=== PATIENT | male | born 1960 | race African-American/Black ===

== ENCOUNTER 2016-10-14 21:15 | Inpatient (IN) | payer OTHER ==
--- NOTE | ~2016-10-14 | IDS ---
Interim Discharge Summary [facility] [address] [place]. [address] NAME: JADE ALLEN : 56 STATUS : ADM IN PAT#: [id number] AGE: 56 ADM/REG DATE : 10/15/16 MR#: [id number] REPORT SERV DATE: 10/24/16 DICTATED BY: CHRISTAL GUTIERREZ DATE: 10/24/16 REPORT STATUS : Draft TRANSCRIBED BY: MODL DATE: 10/24/16 ADMISSION DATE: 10/15/2016 DISCHARGE DATE: The patient was admitted on 10/15/2016 by my colleague, Dr. Alamo. Afterwards, the patient was seen by Dr. Cruz, hospitalist and then I started to see this patient on 10/18/2016. I personally provided service to this patient from 10/18/2016 to 10/24/2016. CURRENT MEDICAL PROBLEMS: 1. Status post aortic root replacement and also pericardial tissue aortic valve replacement for dissecting ascending aortic aneurysm on 10/20/2016 per cardiothoracic surgeon, Dr. Hamilton. 2. Right-sided large pneumothorax on the chest x-ray on 10/24/2016/postsurgical for pigtail catheter placement today recommended per Cardiothoracic Surgery, Dr. Hamilton. 3. Hypertension, currently off nicardipine drip. Blood pressure mostly controlled. Norvasc added to the patient's blood pressure medication regimen per lease operator, Dr. Peña. 4. Chronic congestive heart failure, chronic systolic dysfunction with ejection fraction of 40 to 45%. 5. Acute kidney injury resolved chronic kidney disease with creatinine being at the baseline. Malariologist, Dr. Sanchez signed off. 6. Mild coronary artery disease, asymptomatic. 7. Postsurgical hyperglycemia, controlled. No evidence of diabetes mellitus. 8. Anemia postsurgical stable hemoglobin and hematocrit. 9. Postsurgical stress leukocytosis, improved, afebrile. 10.Mild thrombocytopenia, postsurgical, improved. CONSULTANTS ON THE CASE: [employer], Dr. Peña and Cardiothoracic, Dr. Hamilton. Plan for this patient is pigtail catheter placement today and blood pressure control. My partner, Dr. Cruz will see this patient starting tomorrow morning. Cardiology, Dr. Peña following this week. MG/MODL Christal Gutierrez M.D. / [id number] CC: Rhina Plummer M.D. Interim Discharge Summary [address] [place] [address] NAME: JADE ALLEN : 56 STATUS : ADM IN PAT#: [id number] AGE: 56 ADM/REG DATE : 10/15/16 MR#: [id number] REPORT SERV DATE: 10/24/16 DICTATED BY: CHRISTAL GUTIERREZ DATE: 10/24/16 REPORT STATUS : Draft TRANSCRIBED BY: KATIE DATE: 10/24/16 Raymond Peña M.D., Ph.D, F.A.C.C. Rhina Ospina M.D.
--- NOTE | ~2016-10-14 | HP ---
History And Physical [place] [id number] [facility] [place]. [address] NAME: JADE ALLEN : 56 STATUS : ADM IN PAT#: [id number] AGE: 56 ADM/REG DATE : 10/15/16 MR#: [id number] REPORT SERV DATE: 10/15/16 DICTATED BY: SYLVESTER NAVARRO DATE: 10/15/16 REPORT STATUS : Draft TRANSCRIBED BY: MODCallie DATE: 10/15/16 DATE OF ADMISSION: 10/15/2016 CHIEF COMPLAINT: Abnormal CT. HISTORY OF PRESENT ILLNESS: The patient is a 56-year-old male with past medical history of hypertension, thoracic aneurysm 5.1 cm, CKD, tobacco use, systolic heart failure under care of Dr. Peña, who was undergoing routine CT for followup of his aneurysm and was noted to have mild enlargement from 5.1 to 5.3 to 5.5 and questionable early small dissection but of note, was also noted to have elevated blood pressure and was sent to emergency room. The case was discussed with emergency room and Dr. Hamilton on-call for CV surgery who recommended further blood pressure control now but due to additional stable vitals at presentation and no chest pain or discomfort, cardiac monitoring, no emergent surgery recommended at this time but we will be monitoring. The patient was placed on clonidine patch, nifedipine with improved blood pressures fairly quickly. The patient has not had any symptoms. Aneurysm has been constant and surveillance since at least 2014. No pain radiating symptoms. No nausea, vomiting, fever, chills, but blood pressure has been somewhat elevated although the patient has not really been symptomatic from this. There is nothing that has worsened or relieved blood pressure. The patient does still smoke approximately one Black and Mild every two to three days. REVIEW OF SYSTEMS: For additional review of systems, 10-point review of systems negative except for that noted in HPI. The patient has no other complaints. PAST MEDICAL HISTORY: Hypertension, reflux, AAA, and CHF. SURGICAL HISTORY: Denies. ALLERGIES: NO KNOWN DRUG ALLERGIES. 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 FAMILY HISTORY: High blood pressure and diabetes. EKG; normal sinus rhythm, rate 73, QTc 456. ALLERGIES: NO KNOWN DRUG ALLERGIES. HOME MEDICATIONS: Aspirin, Tums, Vasotec, Lopressor, multivitamin, and Clear Eyes. PHYSICAL EXAMINATION: VITAL SIGNS: The patient's blood pressure initially was 197/68, improved to 150s over 80s, temperature 98.2, pulse 74, respirations 18, and O2 sats 98%. GENERAL: No acute distress. Well developed, well nourished. Approximately 6 foot 3 inches. EYES: Does have injected conjunctivae. EOMI. History And Physical [address] [place]. [address] NAME: JADE ALLEN : 56 STATUS : ADM IN PAT#: [id number] AGE: 56 ADM/REG DATE : 10/15/16 MR#: [id number] REPORT SERV DATE: 10/15/16 DICTATED BY: SYLVESTER NAVARRO DATE: 10/15/16 REPORT STATUS : Draft TRANSCRIBED BY: KATIE DATE: 10/15/16 ENT: Nares patent. Tongue midline. RESPIRATORY: Clear to auscultation. No wheezes, rales. CV: Does have systolic ejection murmur. No rubs or gallops. GI: Soft, nontender, nondistended. Bowel sounds positive. : Deferred. MUSCULOSKELETAL: Moves all extremities x4. SKIN: Warm and dry. LYMPH: No cervical or supraclavicular lymphadenopathy. HEME: No bleeding or bruising. NEURO: Alert and oriented. Symmetrical smile. Normal vocal kirk. Symmetrical strength bilaterally. PSYCH: Calm, pleasant, resting comfortably. LABS: CTA 5.5 cm ascending thoracic aneurysm with short segment dissection, moderate dilated aortic root 3.8 cm, aneurysm of the proximal descending thoracic aorta, coronary disease, mild nonobstructive multivessel calcification, atherosclerosis as described above. WBC count 5.6, H and H 14 and 40.3 platelets 180, INR 1.1. Troponin negative. Magnesium 2.2. Calcium 9.4, glucose 112, creatinine 1.62, BUN 19, sodium 140, potassium 3.5, chloride 105, and bicarb 27. ASSESSMENT AND PLAN: 1. Accelerated hypertension. 2. Ascending aortic aneurysm. 3. Chronic kidney disease. 4. Tobacco use. 5. Systolic heart failure history. 6. Likely hyperlipidemia. PLAN: 1. For accelerated hypertension, improved with clonidine patch, increased CRISTOBAL inhibitor and on beta silviano. Add CCB. Titrate CRISTOBAL inhibitor as tolerated as the patient does have mild CKD. Heart rate borderline, monitor while on beta silviano. We would like to optimize current home medications for BP control, however, due to heart rate and CKD, we will need to monitor closely. 2. Ascending aortic aneurysm and thoracic aneurysm. CT note Dr. Hamilton has been notified and aware. Continue BP control. Risks modifications with stopping tobacco use. CV surgery to evaluate in a.m. 3. CKD, monitor BP control, check renin aldosterone ratio. 4. Tobacco use. Check UDS, nicotine patch. Does smoke one cigar every three days. I have discussed and counseled. 5. Systolic heart failure, grade 3 to 6 systolic ejection murmur prior, EF currently 40%- 45%, followed by Dr. Peña, on CRISTOBAL inhibitor, beta silviano, aspirin, start statin. Echo was done on 10/14/2016. 6. Likely hyperlipidemia. He does have what appears to be cholesterol deposits on eyelids. Check lipid profile. Start statin. All questions answered to patient and family. History And Physical [address] [address] NAME: JADE ALLEN : 56 STATUS : ADM IN PAT#: [id number] AGE: 56 ADM/REG DATE : 10/15/16 MR#: [id number] REPORT SERV DATE: 10/15/16 DICTATED BY: SYLVESTER NAVARRO DATE: 10/15/16 REPORT STATUS : Draft TRANSCRIBED BY: KATIE DATE: 10/15/16 DDN/KATIE Sylvester Navarro MD / [id number] CC: Rhina Lyon M.D.
--- NOTE | ~2016-10-14 | CN ---
Consultation Report [facility] [address] [place]. [address] NAME: JADE ALLEN : 56 STATUS : DIS IN PAT#: [id number] AGE: 56 ADM/REG DATE : 10/15/16 MR#: [id number] REPORT SERV DATE: 10/31/16 DICTATED BY: RAJIV PHOENIX DATE: 10/31/16 REPORT STATUS : Draft TRANSCRIBED BY: MODL DATE: 10/31/16 CONSULT NOTE DATE OF CONSULTATION: 10/17/2016 REASON FOR REFERRAL: Evaluation for ascending aortic focal dissection. HISTORY OF PRESENT ILLNESS: The patient is a 56-year-old male, who has been followed by Dr. Peña for an ascending aortic aneurysm. He recently had a followup CT scan performed as an outpatient, which shows an increase in the size of his aortic aneurysm with a suggestion of a focal dissection. He was sent to the emergency department and subsequently admitted on the hospital by the hospitalist service. He does not complain of any radiating pain, shortness of breath, or any other symptoms at this time. He does report noncompliance with his blood pressure medication. PAST MEDICAL HISTORY: Significant for chronic kidney disease, ascending aortic aneurysm, hypertension, systolic heart failure, and hyperlipidemia. PAST SURGICAL HISTORY: None. SOCIAL HISTORY: Socially, he is a current tobacco user. Drinks about a six-pack a week of alcohol. 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 FAMILY HISTORY: Significant for kidney disease. ALLERGIES: NO KNOWN DRUG ALLERGIES. HOME MEDICATIONS: Include Vasotec, Lopressor, aspirin, multivitamin. REVIEW OF SYSTEMS: Otherwise negative that which was not stated in the HPI. PHYSICAL EXAMINATION: VITAL SIGNS: He is afebrile and vital signs are all currently stable. HEENT: Normocephalic, atraumatic with no scleral icterus. NECK: Supple with no thyromegaly. CHEST: Clear to auscultation bilaterally. HEART: Regular rate and rhythm with a 3/6 diastolic murmur. ABDOMEN: Soft, nontender, nondistended. EXTREMITIES: Warm with 1+ distal pulses. No clubbing, cyanosis, or edema. MUSCULOSKELETAL: Grossly intact. NEUROLOGIC: Grossly intact. STUDIES: He has already undergone CT scan, which I have reviewed, which shows a 5 cm Consultation Report [facility] [address] [place]. [address] NAME: AJDE ALLEN : 56 STATUS : DIS IN PAT#: [id number] AGE: 56 ADM/REG DATE : 10/15/16 MR#: [id number] REPORT SERV DATE: 10/31/16 DICTATED BY: RAJIV PHOENIX DATE: 10/31/16 REPORT STATUS : Draft TRANSCRIBED BY: MODL DATE: 10/31/16 ascending aortic aneurysm with what appears to be a focal dissection at the lesser curvature abutting the main pulmonary artery trunk. This appears to be stable. He also has undergone an echocardiogram, which shows aortic insufficiency 2 to 3+. IMPRESSION: Ascending aortic aneurysm with focal dissection and aortic insufficiency. PLAN: He is to undergo cardiac catheterization to evaluate any coronary artery disease. There is no doubt he will need surgical intervention. I have explained all risks, benefits, and alternatives of surgery with him including, but not limited to bleeding, infection, stroke, and . He understands these risks and wishes to proceed. Once we have cardiac catheterization, I will discuss valve choice and we will intervene in the next few days. CCR/MODL Rajiv Phoenix M.D. / [id number] CC: MD Kathie Becerra M.D.
--- NOTE | ~2016-10-14 | CN ---
Consultation Report [facility] [address] [place]. [address] NAME: JADE ALLEN : 56 STATUS : ADM IN PAT#: [id number] AGE: 56 ADM/REG DATE : 10/15/16 MR#: [id number] REPORT SERV DATE: 10/15/16 DICTATED BY: AMOS OSCAR DATE: 10/15/16 REPORT STATUS : Draft TRANSCRIBED BY: MODL DATE: 10/15/16 DATE OF CONSULTATION: REASON FOR CONSULTATION: Chronic kidney disease. HISTORY OF PRESENT ILLNESS: This is a very pleasant 56-year-old male patient, who is referred to [facility] after observational followup imaging noted thoracic aneurysm enlargement from 5.1 to 5.3 to 5.5 with questionable early dissection. He was also noted to be hypertensive, and he was evaluated at [facility] in the emergency department and placed inpatient in favor of further workup and supportive care. Surgical Service it appears has evaluated the patient and continues to monitor him closely. Blood pressure augmentation is underway, and we have been asked to evaluate the patient for the possibility of chronic kidney disease. The patient reports a family medical history consistent with hypertension and a grandmother who with some complication related to end-stage renal disease; however, the patient does not recall specifically any end-stage renal disease or chronic kidney disease in his family medical history. He has had some level of difficulty with blood pressure control for prolonged amount of time by his own admission and continues to intermittently smoke Black and Milds every two to three days and prior to that, had smoked one pack per day for multiple years. He is awake and alert this afternoon. He denies current chest pain. No nausea, vomiting, or diarrhea and has no acute complaints. PAST MEDICAL HISTORY: Positive for hypertension, reflux, AAA, and CHF with unknown ejection fraction at the point of dictation. REVIEW OF SYSTEMS: Completed, please see HPI for pertinent details. PAST SURGICAL HISTORY: There is none listed on his previous chart. SOCIAL HISTORY: Occasional use of a Black and Mild. Previously smoked one pack per day for greater than 25 years with recent smoking cessation for approximately six months, then a reintroduction of intermittent smoking. He rarely uses alcohol. No illicit drugs. Does not use nonsteroidals with any frequency. 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 FAMILY HISTORY: Positive for hypertension and diabetes as well as some comorbid condition related to chronic kidney disease/end-stage renal disease with his grandmother at the time of . ALLERGIES: HE LISTS NO KNOWN MEDICATION ALLERGIES. HOME MEDICATIONS: ASA 81 mg daily, Tums 750 to 1500 daily p.r.n., Vasotec 5 mg p.o. daily, metoprolol 50 mg p.o. b.i.d., multivitamin one tab p.o. daily, and Clear Eyes one drop OPH daily p.r.n. Consultation Report [place] [id number] [place]. [address] NAME: JADE ALLEN : 56 STATUS : ADM IN PAT#: [id number] AGE: 56 ADM/REG DATE : 10/15/16 MR#: [id number] REPORT SERV DATE: 10/15/16 DICTATED BY: AMOS OSCAR DATE: 10/15/16 REPORT STATUS : Draft TRANSCRIBED BY: KATIE DATE: 10/15/16 PHYSICAL EXAMINATION: VITAL SIGNS: Blood pressure 212/86, temperature 97.8, respiratory rate 18, heart rate 67 beats per minute, and 94% on room air. 10 mL listed in and 550 out. GENERAL: He is awake and alert, in no acute distress. Denies current chest pain. No nausea, vomiting, or diarrhea. HEENT: Normocephalic and atraumatic. Normal ocular movements. No scleral icterus or conjunctival pallor is appreciated. NECK: Without thyromegaly. No JVD or mass. CHEST: Shows positive S1 and S2. No rubs or gallops. LUNGS: Diminished, but clear to auscultation throughout with normal expansion and effort bilaterally. GI: Shows positive bowel sounds. EXTREMITIES: No clubbing, cyanosis, or edema. NEUROLOGIC: Appears to be grossly intact and nonfocal. SKIN: Warm, dry, and intact to visualized surfaces. No rash, lesions, or ecchymosis. PSYCH: He is of appropriate mood and affect. : Deferred. LABORATORY DATA: Pertinent laboratories and imaging to this evaluation: Most recent creatinine at 1.34, sodium 143, potassium 3.5, chloride 107, CO2 of 27, BUN 16, reflected GFR at 67 mL/minute, glucose of 97, calcium 8.9, magnesium 2.0. Lipid panel shows cholesterol 178, HDL and LDL 55 and 111 respectively, triglycerides are 64. Albumin 3.4, globulin 3.48, ALT and AST are 29 and respectively, alkaline phosphatase 95. White blood cell count at 5.2, RBC 4.35, platelets 162. IMPRESSION AND PLAN: This is a very pleasant 56-year-old male patient with recent history as reflected above in HPI with admission for enlarging with surgical observation as planned at this point. The patient has long had difficulty with uncontrolled hypertension and has continued to intermittently smoke and has a previous smoking history. He does not chronically use nonsteroidal medications and does have a family history that does have some level of chronic kidney disease involvement, it would seem. With his labile blood pressure, would question the presence of renal artery stenosis. Likely, his chronic kidney disease is related to his uncontrolled hypertension. In review of his previous creatinine spanning the years of 2014, 2015 and 2016, his baseline appears to be 1.34, which is just today, at its lowest point to a max of 1.63 detected on 04/20/2015. He did receive contrast of 100 mL on evaluation in the emergency department with undertaking of his CTA. He continues currently on his CRISTOBAL inhibitor, and this medication may need to be removed at least temporarily if his creatinine were to higher. In regard to his chronic kidney disease, we will check a urinalysis for protein and blood, check renal ultrasound and Doppler to rule out renal artery stenosis, check postvoid residual to assure complete bladder emptying and no urinary retention. I suspect this gentleman is likely at his baseline and is advised to improve blood pressure control not only for his AAA maintenance, but as well as to maintain his renal health going forward. He is also advised towards smoking cessation, and he is also Consultation Report [place] [address] [facility] [place]. [address] NAME: JADE ALLEN : 56 STATUS : ADM IN PAT#: [id number] AGE: 56 ADM/REG DATE : 10/15/16 MR#: [id number] REPORT SERV DATE: 10/15/16 DICTATED BY: AMOS OSCAR DATE: 10/15/16 REPORT STATUS : Draft TRANSCRIBED BY: KATIE DATE: 10/15/16 advised for judicious exposure to contrast medium when medically necessary. We will follow the patient with you, place him on strict I's and Os, daily weights, augment blood pressure control, further testing as listed above and modify treatment plan based on clinical presentation of the patient, laboratory results, further consultation with Renal attending. We appreciate consultation, we are glad to follow. DICTATED BY: Wil Larsen NP JR/KATIE os Oscar M.D. / [id number] CC: Rhina Lyon M.D.
--- NOTE | ~2016-10-14 | CN ---
Consultation Report [address] [place]. [address] NAME: JADE BRICE : 56 STATUS : ADM IN PAT#: [id number] AGE: 56 ADM/REG DATE : 10/15/16 MR#: [id number] REPORT SERV DATE: 10/15/16 DICTATED BY: RAYMOND BAH DATE: 10/15/16 REPORT STATUS : Draft TRANSCRIBED BY: MODCallie DATE: 10/15/16 CARDIOLOGY CONSULTATION. DATE OF CONSULTATION: [facility] PHYISICIAN: Raymond Bah M.D., Ph.D, F.A.C.C. INDICATIONS: A 56-year-old man with abnormal CT scan and thoracic aortic aneurysm, probable focal dissection. HISTORY OF PRESENT ILLNESS: Mr. Brice is a 56-year-old man with a history of poorly controlled hypertension and variable medication compliance as well as thoracic aneurysm which has been followed clinically over the years. He saw his primary care physician recently who noted by patient report a progressive heart murmur and ordered an outpatient CT scan that was performed yesterday showing a 5.5 cm ascending aortic aneurysm and probable small focal dissection of the ascending aorta adjacent to the pulmonary artery. I have reviewed this personally and agree. The patient is completely asymptomatic. He has no chest pain or chest discomfort. He has no dyspnea. He does report he was not taking his blood pressures regularly like he was supposed to and missing several doses. He has no palpitations, lightheadedness, dizziness, and no fever. REVIEW OF SYSTEMS: As per the history of present illness. Ten other systems are negative. PAST MEDICAL HISTORY: 1. Hypertension. 2. Thoracic aortic aneurysm. 3. Hypertensive cardiomyopathy. FAMILY HISTORY: Positive for heart disease. SOCIAL HISTORY: Positive alcohol, positive tobacco. ALLERGIES: NO KNOWN DRUG ALLERGIES. HOME MEDICATIONS: 1. Aspirin 81 daily. 2. Tums. 3. Vasotec 10 p.o. daily. 4. Lopressor 50 p.o. b.i.d. 5. A multivitamin. PHYSICAL EXAMINATION: VITAL SIGNS: The patient is afebrile. Heart rate 74. Blood pressure 184/60. Consultation Report [address] [address] NAME: JADE BRICE : 56 STATUS : ADM IN PAT#: [id number] AGE: 56 ADM/REG DATE : 10/15/16 MR#: [id number] REPORT SERV DATE: 10/15/16 DICTATED BY: RAYMOND BAH DATE: 10/15/16 REPORT STATUS : Draft TRANSCRIBED BY: KATIE DATE: 10/15/16 GENERAL: The patient is a pleasant black male, no apparent distress. HEENT: Conjunctivae are anicteric, no xanthelasma, lips without cyanosis. NECK: Supple, normal JVP, carotids +2 without bruit. LUNGS: Clear to auscultation bilaterally, no wheezes, rales or rhonchi. CARDIOVASCULAR: Regular rate and rhythm. There is a 3/6 diastolic blowing murmur. There are symmetrical pulses. ABDOMEN: Soft, nontender, nondistended, with normal bowel sounds. No hepatomegaly. EXTREMITIES: No clubbing, cyanosis or edema. NEURO/PSYCH: Alert and oriented to person, place and time. No gross neurologic abnormality. Mood and affect normal. DATA: EKG shows sinus rhythm with no diagnostic ST-T wave changes. Labs significant for mildly elevated creatinine. IMPRESSION: 1. Ascending aortic aneurysm, probable small dissection, which has been personally reviewed. 2. Hypertension. 3. Acute on chronic kidney disease. 4. Tobacco abuse. 5. Aortic insufficiency. RECOMMENDATIONS: Mr. Brice has poorly controlled hypertension and a thoracic aneurysm at the limits recommended for surgery. I do believe he has a small focal dissection but is completely asymptomatic. I suspect it is more chronic based on the history. We are going to monitor him carefully here in the hospital, get him evaluated by CT surgery. I am going to try to get his creatinine better by controlling his blood pressure. We may consider doing an arteriogram before proceeding with a more urgent aneurysm repair. I am going to attempt to discuss this with Dr. Hamilton. WO/KATIE Raymond Bah M.D., Ph.D, F.A.C.C. / [id number] CC: Rhina Lyon M.D.
--- NOTE | ~2016-10-14 | OP ---
Record Of Operation [facility] [address] [place]. [address] NAME: JADE ALLEN : 56 STATUS : DIS IN PAT#: [id number] AGE: 56 ADM/REG DATE : 10/15/16 MR#: [id number] REPORT SERV DATE: 11/01/16 DICTATED BY: RAJIV PHOENIX DATE: 10/31/16 REPORT STATUS : Draft TRANSCRIBED BY: MODL DATE: 10/31/16 DATE OF PROCEDURE: 10/20/2016 PREOPERATIVE DIAGNOSIS: Ascending aortic aneurysm at greater than 5 cm, 3 to 4+ aortic insufficiency, focal ascending aortic dissection. POSTOPERATIVE DIAGNOSIS: Ascending aortic aneurysm at greater than 5 cm, 3 to 4+ aortic insufficiency, focal ascending aortic dissection. PROCEDURE: 1. Urgent ascending aortic replacement with a #32 Gelweave graft with sinus segment preservation. 2. Aortic valve replacement with a #27 Mckeon Magna Ease pericardial valve. 3. Transesophageal echocardiogram. 4. Right subclavian 8 mm Gelweave graft anastomosis for aortic inflow. SURGEON: Rajiv Phoenix M.D. TARE MAN: Yoavny. ANESTHESIA: Nakul Chang M.D. CARDIOPULMONARY BYPASS TIME: 91 minutes. CROSS-CLAMP TIME: 67. FINDINGS: 4+ aortic insufficiency with redundant leaflet folds at the coaptation site, 5.1 cm ascending aorta with focal dissection that is chronic abutting the pulmonary artery, 3.8 cm sinus segment that was preserved, ejection fraction approximating 50%, trace mitral regurgitation. WIRES: Atrial and ventricular x2. TUBES: Mediastinal x2. COMPLICATIONS: None. CONDITION: Fair to the ICU on a Dobutrex drip AV paced at 80. PROCEDURE IN DETAIL: After informed consent was obtained from the patient, he was brought to the operating room, laid in supine position and general anesthesia was induced. A transesophageal echocardiogram was performed, which showed the aforementioned ascending aortic aneurysm with 3 to 4+ aortic insufficiency that was central and eccentric nature. There was trace mitral regurgitation. The patient was prepped and draped in the normal fashion. Incision was made just inferior to the right clavicle and dissection carried down to the right subclavian artery. A 5000 units of heparin were given systemically. Vessel Record Of Operation [facility] [address] [place]. [address] NAME: JADE ALLEN : 56 STATUS : DIS IN PAT#: [id number] AGE: 56 ADM/REG DATE : 10/15/16 MR#: [id number] REPORT SERV DATE: 11/01/16 DICTATED BY: RAJIV PHOENIX DATE: 10/31/16 REPORT STATUS : Draft TRANSCRIBED BY: KATIE DATE: 10/31/16 loops were placed proximally and distally. The subclavian artery was entered sharply and an aortic punch used to create a defect. A end-to-side 8 mm anastomosis using a Gelweave graft was performed using a running 5-0 Prolene suture. Artery was allowed to back-bleed and the graft hooked up to arterial inflow from the pump after de-airing. A median sternotomy was performed in the usual fashion. Pericardium was entered in the midline and tacked to the skin using multiple silk sutures. Full systemic heparinization was performed. Venous cannulation was performed in the right atrial appendage. A retrograde cardioplegia cannula was placed in the coronary sinus via the right atrium. The patient was placed on cardiopulmonary bypass and cooled to approximately 35 degrees Celsius. An LV vent was placed via the right superior pulmonary vein. Cross-clamp was placed high just in the proximal arch, just inferior to the right subclavian artery. Custodiol cardioplegia was given via the retrograde cannula. An incision was made into the ascending aorta, dissection carried down so that the sinus segment could be visualized. Additional handheld cardioplegia was given down both coronary ostia. Approximately 1.5 to 2 L of total fpc was given. Dissection was then carried down all the way to the sinotubular junction and the ascending aorta removed. There was a focal dissection in the inferior curvature of the ascending aorta abutting the pulmonary artery with significant scar tissue around this area. This was all removed. The sinus segment appeared normal in size at 3.8 cm. The aortic valve was trileaflet in nature, but had severe redundant fold over leading edges of the leaflet that were not competent. The aortic valve leaflets were excised sharply. The aortic annulus was sized and a #27 Mckeon Magna Ease Pericardial valve selected, brought to the field and washed. Circumferential 2-0 Tycron pledgeted sutures were placed along the valve anulus. Sutures were then fired through the sewing ring of the valve and the valve seated without difficulty. Sutures were then tied down circumferentially. Attention was carried back to the ascending aorta. The ascending aorta was dissected sharply up to the cross-clamp where there again was found a normal non- aneurysmal tissue. The sinotubular junction was sized and a 32 mm Gelweave straight graft brought to the field. A proximal end-to-end anastomosis was performed using a running 4-0 Prolene suture. An end-to-end distal anastomosis was performed using a running 4-0 Prolene suture. A vent cannula was placed into the graft. The heart was filled and de-aired through the vent cannula. Cross-clamp was removed. Ventricular pacing wires were placed on the right ventricular surface and atrial pacing wires placed on the right atrial surface. A posterior pericardial chest tube was placed. After the patient achieved normothermia, he was weaned from cardiopulmonary bypass without difficulty. Transesophageal echocardiogram showed the valve to be functioning well with no perivalvular leaks. Protamine was administered. The patient was decannulated. After surgical hemostasis was achieved, an anterior pericardial chest tube was placed and the sternal wire reapproximated using the sternal cable system. An Endo-LUIGI stapler was then used to staple off the graft from the right subclavian artery. The dissection plane was then closed using running Vicryl and Monocryl sutures. Overall, the patient tolerated procedure well, was transported to the ICU on a Dobutrex drip AV paced at 80. CCR/MODL Rajiv Record Of Operation [facility] [address] [place]. [address] NAME: JADE ALLEN : 56 STATUS : DIS IN PAT#: [id number] AGE: 56 ADM/REG DATE : 10/15/16 MR#: [id number] REPORT SERV DATE: 11/01/16 DICTATED BY: RAJIV PHOENIX DATE: 10/31/16 REPORT STATUS : Draft TRANSCRIBED BY: MODL DATE: 10/31/16 Mayo Phoenix M.D. / [id number] CC: MD Kathie Becerra M.D. [facility] c/o Rajiv Phoenix
--- NOTE | ~2016-10-14 | DS ---
Discharge Summary [facility] [address] [place]. [address] NAME: JADE ALLEN : 56 STATUS : DIS IN PAT#: [id number] AGE: 56 ADM/REG DATE : 10/15/16 MR#: [id number] REPORT SERV DATE: 10/28/16 DICTATED BY: BASIL CASTILLO DATE: 10/27/16 REPORT STATUS : Draft TRANSCRIBED BY: MODL DATE: 10/27/16 ADMISSION DATE: 10/15/2016 DISCHARGE DATE: 10/27/2016 ADDENDUM: DISCHARGE DIAGNOSES: 1. Status post aortic root and aortic valve replacement per Dr. Hamilton on 10/20/2016. 2. Right-sided large pneumothorax on 09/24/2016, status post chest tube placement with improvement. 3. Hypertension. 4. Chronic congestive heart failure with baseline systolic dysfunction of ejection fraction 40%-45%. 5. Acute kidney injury, resolved. 6. Mild coronary artery disease. 7. Postsurgical hyperglycemia, controlled. 8. Mild thrombocytopenia, postsurgical, improved. 9. Postsurgical stress leukocytosis, improved. 10.Postop anemia. Please note that this is an addendum to an interim discharge summary that was dictated by Dr. Priyanka Martinez. The patient was actually basically ready for discharge home by the time I assumed care on 10/25/2016. The patient had the chest tube placed the night prior to my encounter with the patient and his pneumothorax had improved. The chest tube was discontinued by 10/26 and the patient was simply monitored overnight to make sure he was stable and the pneumothorax was not coming back. Otherwise, the patient had been stable from surgical standpoint for discharge home, and he did not have any other acute issues. The patient is being discharged home with close outpatient followup instructions. There was nothing more to add to Dr. Martinez's interim discharge summary. DISPOSITION: Home. MEDICATIONS: 1. Enalapril 5 mg p.o. q.a.m. 2. Aspirin 81 mg p.o. q.a.m. 3. Multivitamin one tab p.o. with lunch. 4. Tums 750 to 1500 mg p.o. daily p.r.n. 5. Lipitor 40 mg p.o. at bedtime. 6. Lopressor 100 mg p.o. b.i.d. 7. Hydralazine 50 mg p.o. b.i.d. 8. Hydrocodone 10/325 one tab p.o. q.4 hours p.r.n. 9. Clear eyes ophthalmic drops one drop ophthalmically daily p.r.n. FOLLOWUP: 1. Please follow up with PCP in the next one to two weeks. 2. Please follow up with Cardiothoracic Surgery and Cardiology as instructed. Discharge Summary [address] [address] NAME: JADE ALLEN : 56 STATUS : DIS IN PAT#: [id number] AGE: 56 ADM/REG DATE : 10/15/16 MR#: [id number] REPORT SERV DATE: 10/28/16 DICTATED BY: BASIL CASTILLO DATE: 10/27/16 REPORT STATUS : Draft TRANSCRIBED BY: KATIE DATE: 10/27/16 TIME SPENT: Total of 40 minutes spent in coordinating this patient's discharge today. WILLIS/KATIE Basil Castillo MD / [id number] CC: MD Kathie Becerra M.D.
[~2016-10-14 21:15] MED LIST: ASAB PO; CENTRUM TAB1 TAB PO; LOP50 PO; NORV5 PO; PRILO PO; VASOTEC2 PO; [UNRECOGNIZED DRUG - CODE] PO
[2016-10-14 21:55] LABS: BASOPHILS 0.4 %; BASOPHILS ABSOLUTE 0.02 10/3/uL (0.0-0.16); EOSINOPHILS 3.6 %; HEMATOCRIT 40.3 % (40.0-51.0); IMMATURE GRANULOCYTES 0.2 %; IMMATURE GRANULOCYTES ABSOLUTE 0.01 10/3/uL (0.0-0.11); MEAN CORPUS HGB CONC 34.7 g/dL (32.0-36.0); MEAN CORPUSCULAR HEMOGLOB 32.4 pg (26.0-34.0); MEAN CORPUSCULAR VOLUME 93.3 fL (80-100); MEAN PLATELET VOLUME 11.6 fL (9.2-13.0); MONOCYTES 11.5 %; MONOCYTES ABSOLUTE 0.64 10/3/uL (0.21-1.20); NEUTROPHILS 57.3 %; NEUTROPHILS ABSOLUTE 3.18 10/3/uL (2.02-8.40); PLATELET COUNT 180 10/3/uL (150-400); RBC DISTRIBUTION WIDTH 13.3 % (12.0-16.0); RED CELL COUNT 4.32 10/6/uL (4.7-6.1); WHITE BLOOD CELLS 5.6 10/3/uL (4.5-10.5)
[2016-10-14 21:57] LABS: MANUAL DIFF NO %
[2016-10-14 22:10] LABS: INTERNATIONAL NORMAL RATI 1.1 UNITS (-); PARTIAL THROMBO TIME 26.3 SEC (22.5-37.2); PROTIME (NOT ORD) 13.6 SEC (12.0-14.5)
[2016-10-14 22:13] LABS: BUN (BLOOD UREA NITROGEN) 19 MG/DL (6-23); CALCIUM, SERUM 9.4 MG/DL (8.5-10.4); CHEST PAIN PROFILE TAT 0 Hrs 24 Mins; CHLORIDE, SERUM 105 MMOL/L (96-112); CO2 (CARBON DIOXIDE) 27 MMOL/L (24-34); CREATININE 1.62 MG/DL (0.70-1.30); GFR AFRICAN AMERICAN 53 ML/MIN (>=60); GFR NON AFRICAN AMERICAN 46 ML/MIN (>=60); GLUCOSE, SERUM 112 MG/DL (60-99); POTASSIUM, SERUM 3.5 MMOL/L (3.5-5.3); SODIUM, SERUM 140 MMOL/L (135-148); TROPONIN I <0.02 NG/ML (<0.05)
[2016-10-14] MEDS ORDERED: LOP50 PO (23:30)
[2016-10-14] MEDS ORDERED: VASOTEC5 PO (23:30)
[2016-10-14] MEDS ORDERED: MULTIVIT/MIN PO (23:31)
[2016-10-14] MEDS ORDERED: ASAB PO (23:31)
[2016-10-14] MEDS ORDERED: TUMS E-X750 M2 PO (23:32)
[2016-10-14] MEDS ORDERED: CLEAR EYE1 OPH (23:33)
[2016-10-15 05:29] LABS: AMPHETAMINES (NOT ORD) NEG (NEG); BARBITURATES (NOT ORDERED NEG (NEG); BENZODIAZEPINES (NOT ORD) NEG (NEG); CANNABINOIDS (THC) NEG (NEG); COCAINE (NOT ORDERED) NEG (NEG); OPIATES NEG (NEG); PHENCYCLIDINE(PCP) NEG (NEG); TRICYCLICS NEG (NEG)
[2016-10-15 05:47] LABS: BASOPHILS 0.4 %; BASOPHILS ABSOLUTE 0.02 10/3/uL (0.0-0.16); EOSINOPHILS 4.4 %; EOSINOPHILS ABSOLUTE 0.23 10/3/uL (0.0-0.53); HEMATOCRIT 40.7 % (40.0-51.0); IMMATURE GRANULOCYTES 0.4 %; IMMATURE GRANULOCYTES ABSOLUTE 0.02 10/3/uL (0.0-0.11); LYMPHOCYTES 29.4 %; LYMPHOCYTES ABSOLUTE 1.53 10/3/uL (0.67-4.30); MEAN CORPUS HGB CONC 34.4 g/dL (32.0-36.0); MEAN CORPUSCULAR HEMOGLOB 32.2 pg (26.0-34.0); MEAN CORPUSCULAR VOLUME 93.6 fL (80-100); MEAN PLATELET VOLUME 11.3 fL (9.2-13.0); MONOCYTES 9.6 %; NEUTROPHILS 55.8 %; NEUTROPHILS ABSOLUTE 2.91 10/3/uL (2.02-8.40); PLATELET COUNT 162 10/3/uL (150-400); RED CELL COUNT 4.35 10/6/uL (4.7-6.1); WHITE BLOOD CELLS 5.2 10/3/uL (4.5-10.5)
[2016-10-15 05:50] LABS: MANUAL DIFF NO %
[2016-10-15 06:03] LABS: A/G RATIO 0.9 (0.7-1.9); ALBUMIN 3.4 G/DL (3.5-5.0); ALKALINE PHOSPHATASE 95 U/L (45-117); BUN (BLOOD UREA NITROGEN) 16 MG/DL (6-23); CALCIUM, SERUM 8.9 MG/DL (8.5-10.4); CHLORIDE, SERUM 107 MMOL/L (96-112); CHOL/HDL RATIO(NOT ORDER) 3.2 (0-5); CHOLESTEROL 178 MG/DL (< 200); CO2 (CARBON DIOXIDE) 27 MMOL/L (24-34); CREATININE 1.34 MG/DL (0.70-1.30); GFR AFRICAN AMERICAN 67 ML/MIN (>=60); GFR NON AFRICAN AMERICAN 58 ML/MIN (>=60); GLOBULIN 3.9 G/DL (2.5-4.1); GLUCOSE, SERUM 97 MG/DL (60-99); HDL CHOLESTEROL 55 MG/DL (> 39); LDL CHOLESTEROL 111 MG/DL (< 130); NON-HDL CHOLESTEROL 123 MG/DL (< 160); POTASSIUM, SERUM 3.5 MMOL/L (3.5-5.3); SGOT(AST) 18 U/L (5-40); SGPT(ALT) 29 U/L (5-65); SODIUM, SERUM 143 MMOL/L (135-148); TOTAL BILIRUBIN 0.4 MG/DL (0-1.2); TOTAL PROTEIN 7.3 G/DL (6.0-8.5); TRIGLYCERIDE 64 MG/DL (< 150)
[2016-10-15 15:27] LABS: WBC (NOT ORDERED) (RFLEX) 0 (0-5)
[2016-10-15 15:43] LABS: ASCORBIC ACID (UR NOT ORDER) NEG (NEG); BILIRUBIN, URINE NEGATIVE (NEG); KETONE, URINE NEGATIVE (NEG); LEUKOCYTE ESTERASE(NOT OR NEG (NEG)
[2016-10-16 07:21] LABS: BASOPHILS 0.3 %; BASOPHILS ABSOLUTE 0.02 10/3/uL (0.0-0.16); EOSINOPHILS 2.4 %; EOSINOPHILS ABSOLUTE 0.18 10/3/uL (0.0-0.53); HEMATOCRIT 40.1 % (40.0-51.0); HEMOGLOBIN 13.8 g/dL (13.6-17.8); IMMATURE GRANULOCYTES 0.3 %; IMMATURE GRANULOCYTES ABSOLUTE 0.02 10/3/uL (0.0-0.11); LYMPHOCYTES 21.1 %; LYMPHOCYTES ABSOLUTE 1.56 10/3/uL (0.67-4.30); MEAN CORPUS HGB CONC 34.4 g/dL (32.0-36.0); MEAN CORPUSCULAR HEMOGLOB 31.9 pg (26.0-34.0); MEAN CORPUSCULAR VOLUME 92.8 fL (80-100); MEAN PLATELET VOLUME 11.4 fL (9.2-13.0); MONOCYTES 9.6 %; MONOCYTES ABSOLUTE 0.71 10/3/uL (0.21-1.20); NEUTROPHILS 66.3 %; PLATELET COUNT 177 10/3/uL (150-400); RBC DISTRIBUTION WIDTH 13.2 % (12.0-16.0); RED CELL COUNT 4.32 10/6/uL (4.7-6.1)
[2016-10-16 07:22] LABS: MANUAL DIFF NO %; WHITE BLOOD CELLS 7.4 10/3/uL (4.5-10.5)
[2016-10-16 07:33] LABS: ALBUMIN 3.1 G/DL (3.5-5.0); BUN (BLOOD UREA NITROGEN) 19 MG/DL (6-23); CHLORIDE, SERUM 107 MMOL/L (96-112); CO2 (CARBON DIOXIDE) 26 MMOL/L (24-34); CREATININE 1.52 MG/DL (0.70-1.30); GFR AFRICAN AMERICAN 58 ML/MIN (>=60); GFR NON AFRICAN AMERICAN 50 ML/MIN (>=60); GLUCOSE, SERUM 97 MG/DL (60-99); PHOSPHORUS, SERUM 3.4 MG/DL (2.5-4.5); POTASSIUM, SERUM 3.8 MMOL/L (3.5-5.3); SODIUM, SERUM 140 MMOL/L (135-148)
[2016-10-17 05:08] LABS: BASOPHILS 0.4 %; BASOPHILS ABSOLUTE 0.02 10/3/uL (0.0-0.16); EOSINOPHILS 3.2 %; EOSINOPHILS ABSOLUTE 0.18 10/3/uL (0.0-0.53); HEMATOCRIT 40.4 % (40.0-51.0); HEMOGLOBIN 14.3 g/dL (13.6-17.8); IMMATURE GRANULOCYTES 0.2 %; IMMATURE GRANULOCYTES ABSOLUTE 0.01 10/3/uL (0.0-0.11); MANUAL DIFF NO %; MEAN CORPUS HGB CONC 35.4 g/dL (32.0-36.0); MEAN CORPUSCULAR HEMOGLOB 32.4 pg (26.0-34.0); MEAN CORPUSCULAR VOLUME 91.6 fL (80-100); MEAN PLATELET VOLUME 11.6 fL (9.2-13.0); MONOCYTES 10.6 %; NEUTROPHILS 55.6 %; NEUTROPHILS ABSOLUTE 3.15 10/3/uL (2.02-8.40); PLATELET COUNT 174 10/3/uL (150-400); RBC DISTRIBUTION WIDTH 13.1 % (12.0-16.0); RED CELL COUNT 4.41 10/6/uL (4.7-6.1); WHITE BLOOD CELLS 5.7 10/3/uL (4.5-10.5)
[2016-10-17 05:21] LABS: ALBUMIN 3.3 G/DL (3.5-5.0); BUN (BLOOD UREA NITROGEN) 19 MG/DL (6-23); CALCIUM, SERUM 9.1 MG/DL (8.5-10.4); CHLORIDE, SERUM 109 MMOL/L (96-112); CO2 (CARBON DIOXIDE) 25 MMOL/L (24-34); GFR AFRICAN AMERICAN 64 ML/MIN (>=60); GFR NON AFRICAN AMERICAN 55 ML/MIN (>=60); GLUCOSE, SERUM 91 MG/DL (60-99); PHOSPHORUS, SERUM 3.6 MG/DL (2.5-4.5); POTASSIUM, SERUM 3.8 MMOL/L (3.5-5.3); SODIUM, SERUM 142 MMOL/L (135-148)
[2016-10-17 10:36] LABS: CHOL/HDL RATIO(NOT ORDER) 3.3 (0-5); CHOLESTEROL 157 MG/DL (< 200); HDL CHOLESTEROL 48 MG/DL (> 39); LDL CHOLESTEROL 80 MG/DL (< 130); NON-HDL CHOLESTEROL 109 MG/DL (< 160); TRIGLYCERIDE 146 MG/DL (< 150)
[2016-10-17 10:36] LABS: INTERNATIONAL NORMAL RATI 1.1 UNITS (-); PROTIME (NOT ORD) 14.1 SEC (12.0-14.5)
[2016-10-18 06:45] LABS: ALBUMIN 3.2 G/DL (3.5-5.0); BUN (BLOOD UREA NITROGEN) 17 MG/DL (6-23); CALCIUM, SERUM 9.3 MG/DL (8.5-10.4); CHLORIDE, SERUM 107 MMOL/L (96-112); CO2 (CARBON DIOXIDE) 26 MMOL/L (24-34); CREATININE 1.34 MG/DL (0.70-1.30); GFR AFRICAN AMERICAN 67 ML/MIN (>=60); GFR NON AFRICAN AMERICAN 58 ML/MIN (>=60); GLUCOSE, SERUM 88 MG/DL (60-99); PHOSPHORUS, SERUM 3.2 MG/DL (2.5-4.5); SODIUM, SERUM 141 MMOL/L (135-148)
[2016-10-18 20:07] LABS: ALDOSTERONE 7.8 ng/dL (<39.2); ALDOSTERONE/RENIN RAT 1.8 ratio (0.1-3.7)
[2016-10-19 05:41] LABS: HEMOGLOBIN 13.9 g/dL (13.6-17.8); MEAN CORPUS HGB CONC 34.8 g/dL (32.0-36.0); MEAN CORPUSCULAR HEMOGLOB 32.7 pg (26.0-34.0); MEAN CORPUSCULAR VOLUME 94.1 fL (80-100); MEAN PLATELET VOLUME 11.4 fL (9.2-13.0); PLATELET COUNT 175 10/3/uL (150-400); RBC DISTRIBUTION WIDTH 12.8 % (12.0-16.0); RED CELL COUNT 4.25 10/6/uL (4.7-6.1); WHITE BLOOD CELLS 5.6 10/3/uL (4.5-10.5)
[2016-10-19 05:46] LABS: MANUAL DIFF YES %
[2016-10-19 05:58] LABS: ALBUMIN 3.3 G/DL (3.5-5.0); BUN (BLOOD UREA NITROGEN) 20 MG/DL (6-23); CALCIUM, SERUM 9.4 MG/DL (8.5-10.4); CHLORIDE, SERUM 106 MMOL/L (96-112); CO2 (CARBON DIOXIDE) 26 MMOL/L (24-34); CREATININE 1.47 MG/DL (0.70-1.30); GFR AFRICAN AMERICAN 60 ML/MIN (>=60); GFR NON AFRICAN AMERICAN 52 ML/MIN (>=60); PHOSPHORUS, SERUM 2.9 MG/DL (2.5-4.5); POTASSIUM, SERUM 3.6 MMOL/L (3.5-5.3); SODIUM, SERUM 140 MMOL/L (135-148)
[2016-10-19 05:59] LABS: GLUCOSE, SERUM 118 MG/DL (60-99)
[2016-10-19 06:18] LABS: BAND NEUTROPHILS 2 %; LYMPHOCYTES 18 %; LYMPHOCYTES ABSOLUTE (CALC) 1.01 10/3/uL (0.67-4.30); MONOCYTES 9 %; NEUTROPHILS ABSOLUTE (CALC) 4.09 10/3/uL (2.02-8.40); PLATELET ESTIMATE ADQ (ADEQUATE); RBC MORPHOLOGY NORM (NORMAL); SEGMENTED NEUTROPHIL (0) 71 %; TOTAL NUCLEATED CELLS 100
[2016-10-19 17:16] LABS: ASCORBIC ACID (UR NOT ORDER) NEG (NEG); BILIRUBIN, URINE NEGATIVE (NEG); KETONE, URINE NEGATIVE (NEG); LEUKOCYTE ESTERASE(NOT OR NEG (NEG); WBC (NOT ORDERED) (RFLEX) < 1 (0-5)
[2016-10-20 04:39] LABS: BASOPHILS 0.4 %; BASOPHILS ABSOLUTE 0.02 10/3/uL (0.0-0.16); EOSINOPHILS 4.2 %; EOSINOPHILS ABSOLUTE 0.21 10/3/uL (0.0-0.53); HEMOGLOBIN 13.5 g/dL (13.6-17.8); IMMATURE GRANULOCYTES 0.2 %; IMMATURE GRANULOCYTES ABSOLUTE 0.01 10/3/uL (0.0-0.11); LYMPHOCYTES 29.2 %; LYMPHOCYTES ABSOLUTE 1.46 10/3/uL (0.67-4.30); MEAN CORPUS HGB CONC 34.6 g/dL (32.0-36.0); MEAN CORPUSCULAR HEMOGLOB 32.1 pg (26.0-34.0); MEAN CORPUSCULAR VOLUME 92.9 fL (80-100); MEAN PLATELET VOLUME 11.4 fL (9.2-13.0); PLATELET COUNT 181 10/3/uL (150-400)
[2016-10-20 04:40] LABS: MANUAL DIFF NO %
[2016-10-20 04:42] LABS: INTERNATIONAL NORMAL RATI 1.1 UNITS (-); PROTIME (NOT ORD) 13.9 SEC (12.0-14.5)
[2016-10-20 04:49] LABS: A/G RATIO 0.9 (0.7-1.9); ALBUMIN 3.3 G/DL (3.5-5.0); ALKALINE PHOSPHATASE 98 U/L (45-117); BUN (BLOOD UREA NITROGEN) 20 MG/DL (6-23); CALCIUM, SERUM 9.4 MG/DL (8.5-10.4); CHLORIDE, SERUM 106 MMOL/L (96-112); CO2 (CARBON DIOXIDE) 27 MMOL/L (24-34); CREATININE 1.46 MG/DL (0.70-1.30); GFR AFRICAN AMERICAN 61 ML/MIN (>=60); GFR NON AFRICAN AMERICAN 52 ML/MIN (>=60); GLOBULIN 3.8 G/DL (2.5-4.1); GLUCOSE, SERUM 106 MG/DL (60-99); POTASSIUM, SERUM 3.7 MMOL/L (3.5-5.3); SGOT(AST) 37 U/L (5-40); SGPT(ALT) 54 U/L (5-65); SODIUM, SERUM 140 MMOL/L (135-148); TOTAL BILIRUBIN 0.3 MG/DL (0-1.2); TOTAL PROTEIN 7.1 G/DL (6.0-8.5)
[2016-10-20 04:51] LABS: DIRECT BILIRUBIN < 0.1 MG/DL (0.0-0.4); INDIRECT BILIRUBIN(NOT ORDER) 0.2 MG/DL (0.1-0.9)
[2016-10-20 13:09] LABS: HEMOBLOGIN CONTENT 14.3 G/DL (14-18); INSTRUMENT SERIAL # 11843; METHEMOGLOBIN 0.6 % (0-3); MODE SIMV; O2 CONTENT 20.6 VOL% (18-24); OPERATOR ID 35188; PCO2 (CO2 TENSION) 40 MMHG (35-45); PO2 (O2 TENSION) 330 MMHG (79-93); SAMPLE Arterial; TIDAL VOLUME 800 ML; pH 7.36 (7.37-7.43)
[2016-10-20 13:33] LABS: HEMATOCRIT 38.2 % (40.0-51.0); HEMOGLOBIN 13.4 g/dL (13.6-17.8)
[2016-10-20 13:40] LABS: INTERNATIONAL NORMAL RATI 1.4 UNITS (-); PARTIAL THROMBO TIME 33.9 SEC (22.5-37.2)
[2016-10-20 13:41] LABS: PROTIME (NOT ORD) 17.1 SEC (12.0-14.5)
[2016-10-20 13:46] LABS: BUN (BLOOD UREA NITROGEN) 19 MG/DL (6-23); CALCIUM, SERUM 9.4 MG/DL (8.5-10.4); CHLORIDE, SERUM 108 MMOL/L (96-112); CO2 (CARBON DIOXIDE) 24 MMOL/L (24-34); CREATININE 1.62 MG/DL (0.70-1.30); GFR AFRICAN AMERICAN 53 ML/MIN (>=60); GFR NON AFRICAN AMERICAN 46 ML/MIN (>=60); GLUCOSE, SERUM 116 MG/DL (60-99); POTASSIUM, SERUM 4.1 MMOL/L (3.5-5.3); SODIUM, SERUM 141 MMOL/L (135-148)
[2016-10-20 14:51] LABS: PLATELET COUNT 128 10/3/uL (150-400)
[2016-10-20 16:49] LABS: BE (BASE EXCESS) -6.5 MEQ/L (0 +/- 2.5); CARBOXYHEMOGLOBIN 0.3 % (0-3); DEVICE NC; HCO3 (ACTUAL BICARBONATE) 19.1 MEQ/L (23-27); HEMOBLOGIN CONTENT 15.3 G/DL (14-18); INSTRUMENT SERIAL # 11843; METHEMOGLOBIN 0.6 % (0-3); O2 CONTENT 20.4 VOL% (18-24); OPERATOR ID 35188; PCO2 (CO2 TENSION) 38 MMHG (35-45); PO2 (O2 TENSION) 88 MMHG (79-93); SAMPLE Arterial; pH 7.32 (7.37-7.43)
[2016-10-20 19:35] LABS: HEMATOCRIT 39.5 % (40.0-51.0); HEMOGLOBIN 13.8 g/dL (13.6-17.8); MEAN CORPUS HGB CONC 34.9 g/dL (32.0-36.0); MEAN CORPUSCULAR HEMOGLOB 32.4 pg (26.0-34.0); MEAN CORPUSCULAR VOLUME 92.7 fL (80-100); MEAN PLATELET VOLUME 11.3 fL (9.2-13.0); PLATELET COUNT 134 10/3/uL (150-400); RBC DISTRIBUTION WIDTH 13.1 % (12.0-16.0); RED CELL COUNT 4.26 10/6/uL (4.7-6.1)
[2016-10-20 19:48] LABS: BUN (BLOOD UREA NITROGEN) 26 MG/DL (6-23); CALCIUM, SERUM 8.8 MG/DL (8.5-10.4); CHLORIDE, SERUM 112 MMOL/L (96-112); CO2 (CARBON DIOXIDE) 19 MMOL/L (24-34); CREATININE 1.92 MG/DL (0.70-1.30); GFR AFRICAN AMERICAN 44 ML/MIN (>=60); GFR NON AFRICAN AMERICAN 38 ML/MIN (>=60); GLUCOSE, SERUM 140 MG/DL (60-99); POTASSIUM, SERUM 3.5 MMOL/L (3.5-5.3); SODIUM, SERUM 145 MMOL/L (135-148)
[2016-10-20 19:50] LABS: MANUAL DIFF YES %; WHITE BLOOD CELLS 18.3 10/3/uL (4.5-10.5)
[2016-10-20 20:04] LABS: BAND NEUTROPHILS 1 %; GIANT PLATELET RARE; LYMPHOCYTES 5 %; LYMPHOCYTES ABSOLUTE (CALC) 0.92 10/3/uL (0.67-4.30); MONOCYTES 7 %; MONOCYTES ABSOLUTE (CALC) 1.28 10/3/uL (0.21-1.20); SEGMENTED NEUTROPHIL (0) 87 %; TOTAL NUCLEATED CELLS 100
[2016-10-20 20:05] LABS: PLATELET ESTIMATE SLT DEC (ADEQUATE); RBC MORPHOLOGY NORM (NORMAL)
[2016-10-21 03:40] LABS: BASOPHILS 0 %; EOSINOPHILS 0 %; HEMATOCRIT 38.1 % (40.0-51.0); HEMOGLOBIN 13.5 g/dL (13.6-17.8); IMMATURE GRANULOCYTES 0.3 %; IMMATURE GRANULOCYTES ABSOLUTE 0.06 10/3/uL (0.0-0.11); LYMPHOCYTES 3.1 %; LYMPHOCYTES ABSOLUTE 0.54 10/3/uL (0.67-4.30); MEAN CORPUS HGB CONC 35.4 g/dL (32.0-36.0); MEAN CORPUSCULAR HEMOGLOB 32.6 pg (26.0-34.0); MEAN PLATELET VOLUME 11.8 fL (9.2-13.0); MONOCYTES 10.9 %; MONOCYTES ABSOLUTE 1.91 10/3/uL (0.21-1.20); NEUTROPHILS 85.7 %; NEUTROPHILS ABSOLUTE 15.02 10/3/uL (2.02-8.40); PLATELET COUNT 125 10/3/uL (150-400); RBC DISTRIBUTION WIDTH 13.3 % (12.0-16.0); RED CELL COUNT 4.14 10/6/uL (4.7-6.1); WHITE BLOOD CELLS 17.5 10/3/uL (4.5-10.5)
[2016-10-21 03:42] LABS: MANUAL DIFF NO %
[2016-10-21 03:48] LABS: FIBRINOGEN 398 MG/DL (230-462); INTERNATIONAL NORMAL RATI 1.2 UNITS (-); PROTIME (NOT ORD) 15.5 SEC (12.0-14.5)
[2016-10-21 03:54] LABS: ALBUMIN 3.5 G/DL (3.5-5.0); BUN (BLOOD UREA NITROGEN) 24 MG/DL (6-23); CALCIUM, SERUM 8.6 MG/DL (8.5-10.4); CHLORIDE, SERUM 110 MMOL/L (96-112); CO2 (CARBON DIOXIDE) 22 MMOL/L (24-34); GFR AFRICAN AMERICAN 67 ML/MIN (>=60); GFR NON AFRICAN AMERICAN 57 ML/MIN (>=60); GLUCOSE, SERUM 146 MG/DL (60-99); SODIUM, SERUM 140 MMOL/L (135-148)
[2016-10-21 03:58] LABS: CREATININE 1.35 MG/DL (0.70-1.30); POTASSIUM, SERUM 5.4 MMOL/L (3.5-5.3)
[2016-10-21 14:52] LABS: HEMATOCRIT 36.3 % (40.0-51.0); HEMOGLOBIN 12.8 g/dL (13.6-17.8)
[2016-10-21 14:59] LABS: POTASSIUM, SERUM 4.5 MMOL/L (3.5-5.3)
[2016-10-21 16:10] LABS: CHLORIDE, SERUM 109 MMOL/L (96-112); CO2 (CARBON DIOXIDE) 23 MMOL/L (24-34); CREATININE 1.43 MG/DL (0.70-1.30); GFR AFRICAN AMERICAN 62 ML/MIN (>=60); GFR NON AFRICAN AMERICAN 54 ML/MIN (>=60); SODIUM, SERUM 139 MMOL/L (135-148)
[2016-10-21 16:11] LABS: BUN (BLOOD UREA NITROGEN) 29 MG/DL (6-23); GLUCOSE, SERUM 110 MG/DL (60-99)
[2016-10-22 03:33] LABS: HEMATOCRIT 35.8 % (40.0-51.0); HEMOGLOBIN 12.1 g/dL (13.6-17.8); MEAN CORPUS HGB CONC 33.8 g/dL (32.0-36.0); MEAN CORPUSCULAR HEMOGLOB 31.8 pg (26.0-34.0); MEAN CORPUSCULAR VOLUME 94.2 fL (80-100); MEAN PLATELET VOLUME 11.8 fL (9.2-13.0); PLATELET COUNT 137 10/3/uL (150-400); RBC DISTRIBUTION WIDTH 13.8 % (12.0-16.0)
[2016-10-22 03:39] LABS: MANUAL DIFF YES %; WHITE BLOOD CELLS 24.6 10/3/uL (4.5-10.5)
[2016-10-22 03:47] LABS: ALBUMIN 3.3 G/DL (3.5-5.0); CHLORIDE, SERUM 105 MMOL/L (96-112); CO2 (CARBON DIOXIDE) 23 MMOL/L (24-34); CREATININE 1.68 MG/DL (0.70-1.30); GFR AFRICAN AMERICAN 51 ML/MIN (>=60); GFR NON AFRICAN AMERICAN 44 ML/MIN (>=60); PHOSPHORUS, SERUM 3.8 MG/DL (2.5-4.5); POTASSIUM, SERUM 4.8 MMOL/L (3.5-5.3); SODIUM, SERUM 137 MMOL/L (135-148)
[2016-10-22 03:48] LABS: BUN (BLOOD UREA NITROGEN) 38 MG/DL (6-23); GLUCOSE, SERUM 167 MG/DL (60-99)
[2016-10-22 04:17] LABS: BAND NEUTROPHILS 4 %; LYMPHOCYTES 3 %; LYMPHOCYTES ABSOLUTE (CALC) 0.74 10/3/uL (0.67-4.30); MONOCYTES 9 %; MONOCYTES ABSOLUTE (CALC) 2.21 10/3/uL (0.21-1.20); NEUTROPHILS ABSOLUTE (CALC) 21.65 10/3/uL (2.02-8.40); PLATELET ESTIMATE SLT DEC (ADEQUATE); RBC MORPHOLOGY NORM (NORMAL); SEGMENTED NEUTROPHIL (0) 84 %; TOTAL NUCLEATED CELLS 100
[2016-10-23 04:00] LABS: BASOPHILS 0.1 %; BASOPHILS ABSOLUTE 0.02 10/3/uL (0.0-0.16); EOSINOPHILS 0 %; HEMOGLOBIN 11.9 g/dL (13.6-17.8); IMMATURE GRANULOCYTES 0.7 %; IMMATURE GRANULOCYTES ABSOLUTE 0.13 10/3/uL (0.0-0.11); LYMPHOCYTES 4.7 %; LYMPHOCYTES ABSOLUTE 0.89 10/3/uL (0.67-4.30); MEAN CORPUSCULAR HEMOGLOB 32.6 pg (26.0-34.0); MEAN CORPUSCULAR VOLUME 95.9 fL (80-100); MEAN PLATELET VOLUME 11.2 fL (9.2-13.0); MONOCYTES 12.4 %; MONOCYTES ABSOLUTE 2.36 10/3/uL (0.21-1.20); NEUTROPHILS 82.1 %; NEUTROPHILS ABSOLUTE 15.59 10/3/uL (2.02-8.40); PLATELET COUNT 125 10/3/uL (150-400); RBC DISTRIBUTION WIDTH 13.6 % (12.0-16.0); RED CELL COUNT 3.65 10/6/uL (4.7-6.1)
[2016-10-23 04:02] LABS: MANUAL DIFF NO %
[2016-10-23 04:18] LABS: BUN (BLOOD UREA NITROGEN) 39 MG/DL (6-23); CALCIUM, SERUM 8.9 MG/DL (8.5-10.4); CHLORIDE, SERUM 103 MMOL/L (96-112); CO2 (CARBON DIOXIDE) 26 MMOL/L (24-34); CREATININE 1.26 MG/DL (0.70-1.30); GFR AFRICAN AMERICAN 72 ML/MIN (>=60); GFR NON AFRICAN AMERICAN 62 ML/MIN (>=60); GLUCOSE, SERUM 137 MG/DL (60-99); POTASSIUM, SERUM 4.3 MMOL/L (3.5-5.3); SODIUM, SERUM 137 MMOL/L (135-148)
[2016-10-23 04:19] LABS: PHOSPHORUS, SERUM 2.4 MG/DL (2.5-4.5)
[2016-10-23 05:50] LABS: PROCALCITONIN 0.42 ng/mL (<0.5)
[2016-10-24 05:14] LABS: BASOPHILS 0.1 %; BASOPHILS ABSOLUTE 0.01 10/3/uL (0.0-0.16); EOSINOPHILS 0.1 %; EOSINOPHILS ABSOLUTE 0.01 10/3/uL (0.0-0.53); HEMATOCRIT 34.1 % (40.0-51.0); HEMOGLOBIN 11.5 g/dL (13.6-17.8); IMMATURE GRANULOCYTES 0.7 %; IMMATURE GRANULOCYTES ABSOLUTE 0.09 10/3/uL (0.0-0.11); LYMPHOCYTES 9.1 %; LYMPHOCYTES ABSOLUTE 1.17 10/3/uL (0.67-4.30); MEAN CORPUS HGB CONC 33.7 g/dL (32.0-36.0); MEAN PLATELET VOLUME 11.2 fL (9.2-13.0); MONOCYTES 16.4 %; MONOCYTES ABSOLUTE 2.11 10/3/uL (0.21-1.20); NEUTROPHILS 73.6 %; NEUTROPHILS ABSOLUTE 9.49 10/3/uL (2.02-8.40); RBC DISTRIBUTION WIDTH 13.6 % (12.0-16.0); RED CELL COUNT 3.59 10/6/uL (4.7-6.1); WHITE BLOOD CELLS 12.9 10/3/uL (4.5-10.5)
[2016-10-24 05:19] LABS: MANUAL DIFF NO %; PLATELET COUNT 165 10/3/uL (150-400)
[2016-10-24 05:46] LABS: ALBUMIN 2.9 G/DL (3.5-5.0); CALCIUM, SERUM 8.8 MG/DL (8.5-10.4); CHLORIDE, SERUM 104 MMOL/L (96-112); CO2 (CARBON DIOXIDE) 29 MMOL/L (24-34); CREATININE 0.99 MG/DL (0.70-1.30); GFR AFRICAN AMERICAN 97 ML/MIN (>=60); GFR NON AFRICAN AMERICAN 84 ML/MIN (>=60); POTASSIUM, SERUM 4.1 MMOL/L (3.5-5.3); SODIUM, SERUM 140 MMOL/L (135-148)
[2016-10-24 05:54] LABS: BUN (BLOOD UREA NITROGEN) 24 MG/DL (6-23); GLUCOSE, SERUM 109 MG/DL (60-99)
[2016-10-25 04:51] LABS: BASOPHILS 0.2 %; BASOPHILS ABSOLUTE 0.02 10/3/uL (0.0-0.16); EOSINOPHILS 0.9 %; EOSINOPHILS ABSOLUTE 0.09 10/3/uL (0.0-0.53); HEMATOCRIT 34.6 % (40.0-51.0); HEMOGLOBIN 11.9 g/dL (13.6-17.8); LYMPHOCYTES 12.3 %; LYMPHOCYTES ABSOLUTE 1.22 10/3/uL (0.67-4.30); MEAN CORPUS HGB CONC 34.4 g/dL (32.0-36.0); MEAN CORPUSCULAR HEMOGLOB 32.7 pg (26.0-34.0); MEAN CORPUSCULAR VOLUME 95.1 fL (80-100); MEAN PLATELET VOLUME 10.4 fL (9.2-13.0); MONOCYTES 15.9 %; MONOCYTES ABSOLUTE 1.58 10/3/uL (0.21-1.20); NEUTROPHILS 69.7 %; PLATELET COUNT 183 10/3/uL (150-400); RBC DISTRIBUTION WIDTH 13.1 % (12.0-16.0); RED CELL COUNT 3.64 10/6/uL (4.7-6.1); WHITE BLOOD CELLS 9.9 10/3/uL (4.5-10.5)
[2016-10-25 04:54] LABS: MANUAL DIFF NO %
[2016-10-25 05:00] LABS: CALCIUM, SERUM 8.6 MG/DL (8.5-10.4); CHLORIDE, SERUM 103 MMOL/L (96-112); CO2 (CARBON DIOXIDE) 29 MMOL/L (24-34); CREATININE 0.99 MG/DL (0.70-1.30); GFR AFRICAN AMERICAN 97 ML/MIN (>=60); GFR NON AFRICAN AMERICAN 84 ML/MIN (>=60); GLUCOSE, SERUM 105 MG/DL (60-99); POTASSIUM, SERUM 4.2 MMOL/L (3.5-5.3); SODIUM, SERUM 138 MMOL/L (135-148)
[2016-10-25 05:26] LABS: BUN (BLOOD UREA NITROGEN) 20 MG/DL (6-23)
[2016-10-26 05:22] LABS: BUN (BLOOD UREA NITROGEN) 18 MG/DL (6-23); CALCIUM, SERUM 8.5 MG/DL (8.5-10.4); CHLORIDE, SERUM 103 MMOL/L (96-112); CO2 (CARBON DIOXIDE) 27 MMOL/L (24-34); CREATININE 0.99 MG/DL (0.70-1.30); GFR AFRICAN AMERICAN 97 ML/MIN (>=60); GFR NON AFRICAN AMERICAN 84 ML/MIN (>=60); GLUCOSE, SERUM 106 MG/DL (60-99); SODIUM, SERUM 138 MMOL/L (135-148)
[2016-10-26 05:37] LABS: BASOPHILS 0.1 %; BASOPHILS ABSOLUTE 0.01 10/3/uL (0.0-0.16); EOSINOPHILS 1.9 %; EOSINOPHILS ABSOLUTE 0.19 10/3/uL (0.0-0.53); IMMATURE GRANULOCYTES 1.2 %; IMMATURE GRANULOCYTES ABSOLUTE 0.12 10/3/uL (0.0-0.11); LYMPHOCYTES 13.7 %; LYMPHOCYTES ABSOLUTE 1.35 10/3/uL (0.67-4.30); MEAN CORPUS HGB CONC 34.3 g/dL (32.0-36.0); MEAN CORPUSCULAR HEMOGLOB 31.8 pg (26.0-34.0); MEAN CORPUSCULAR VOLUME 92.8 fL (80-100); MONOCYTES 13.7 %; MONOCYTES ABSOLUTE 1.35 10/3/uL (0.21-1.20); NEUTROPHILS 69.4 %; PLATELET COUNT 205 10/3/uL (150-400); RED CELL COUNT 3.77 10/6/uL (4.7-6.1); WHITE BLOOD CELLS 9.8 10/3/uL (4.5-10.5)
[2016-10-26 05:38] LABS: MANUAL DIFF NO %
[2016-10-27] MEDS ORDERED: NORV10 PO (11:27)
[2016-10-27] MEDS ORDERED: LIPITOR40 PO (11:27)
[2016-10-27] MEDS ORDERED: LOP100 PO (11:28)
[2016-10-27] MEDS ORDERED: APRES50 PO (11:29)
[2016-10-27] MEDS ORDERED: NORCO1 TAB PO (11:30)
== END 2016-10-27 13:02 | disposition home or self-care (01) | DRG 217 ==
LOC: ER 21:15 → 5NO 10-15 01:00 → SDC/OF 10-20 08:29 → CVICU 10-20 12:16 → 5NO 10-23 17:14
PROVIDERS: Emergency Medicine; Hospitalist; Internal Medicine; Internal Medicine Cardiovascular Disease; Internal Medicine Nephrology; Nurse Practitioner; Nurse Practitioner Family; Registered Nurse; Student in an Organized Health Care Education/Training Program; Thoracic Surgery (Cardiothoracic Vascular Surgery)
PROC: 4A023N7 Measurement of Cardiac Sampling and Pressure, Left Heart, Percutaneous Approach (ICD-10-PCS; principal; 2016-10-17)
PROC: B2111ZZ Fluoroscopy of Multiple Coronary Arteries using Low Osmolar Contrast (ICD-10-PCS; 2016-10-17)
PROC: B2151ZZ Fluoroscopy of Left Heart using Low Osmolar Contrast (ICD-10-PCS; 2016-10-17)
PROC: 5A1221Z Performance of Cardiac Output, Continuous (ICD-10-PCS; 2016-10-20)
PROC: B246ZZ4 Ultrasonography of Right and Left Heart, Transesophageal (ICD-10-PCS; 2016-10-20)
PROC: 02RX0JZ Replacement of Thoracic Aorta, Ascending/Arch with Synthetic Substitute, Open Approach (ICD-10-PCS; 2016-10-20 08:00)
PROC: 02RF08Z Replacement of Aortic Valve with Zooplastic Tissue, Open Approach (ICD-10-PCS; 2016-10-20 08:00)
PROC: 0W9930Z Drainage of Right Pleural Cavity with Drainage Device, Percutaneous Approach (ICD-10-PCS; 2016-10-24)
DX: I71.01 Dissection of thoracic aorta (principal); I13.0 Hypertensive heart and chronic kidney disease with heart failure and stage 1 through stage 4 chronic kidney disease, or unspecified chronic kidney disease; D69.6 Thrombocytopenia, unspecified; N17.9 Acute kidney failure, unspecified; I50.22 Chronic systolic (congestive) heart failure; N18.3 Chronic kidney disease, stage 3 (moderate); J95.811 Postprocedural pneumothorax; E78.5 Hyperlipidemia, unspecified; I35.0 Nonrheumatic aortic (valve) stenosis; R73.9 Hyperglycemia, unspecified; Y83.8 Other surgical procedures as the cause of abnormal reaction of the patient, or of later complication, without mention of misadventure at the time of the procedure; Y92.239 Unspecified place in hospital as the place of occurrence of the external cause; F17.210 Nicotine dependence, cigarettes, uncomplicated; Z79.82 Long term (current) use of aspirin; Z79.899 Other long term (current) drug therapy; Z82.49 Family history of ischemic heart disease and other diseases of the circulatory system; Z83.3 Family history of diabetes mellitus; Z84.1 Family history of disorders of kidney and ureter
CPT/HCPCS: 32557; 36415; 71010; 71020; 80048; 80053; 80061; 80069; 80076; 80305; 81001; 82088; 82330; 82803; 82805; 82947; 82962; 83036; 83735; 84132; 84145; 84244; 84295; 84484; 85014; 85018; 85025; 85049; 85347; 85384; 85610; 85730; 86850; 86900; 86901; 86920; 87641; 88305; 88311; 93005; 93312; 93320; 93325; 93458; 93975; 94002; 94640; 94660; 94770; 99152; 99153; 99291; A9270-GY; C1713; C1725; C1751; C1760; C1768; C1769; C1894; C1898; J0282; J0360; J0690; J1644; J1940; J2150; J2250; J2370; J2405; J2440; J2720; J2930; J3010; J3475; P9045; P9047; Q9967